=== PATIENT | female | born 1975 | race Caucasian/White ===

== ENCOUNTER → 2023-09-12 15:02 | Outpatient (REF) | payer OTHER, SELFPAY | LOC: WDC 15:02 | PROVIDERS: ATTENDING PHYSICIAN Nurse Practitioner Adult Health | DX: R92.2 Inconclusive mammogram (principal) | CPT/HCPCS: 76641 ==

== ENCOUNTER → 2024-05-18 08:07 | Day surgery (SDC) | payer OTHER, SELFPAY | LOC: GI 08:07 | PROVIDERS: ATTENDING PHYSICIAN Internal Medicine Gastroenterology; FAMILY PHYSICIAN Family Medicine | DX: Z12.11 Encounter for screening for malignant neoplasm of colon (principal); D12.3 Benign neoplasm of transverse colon; K62.1 Rectal polyp | CPT/HCPCS: 45385; 88305 ==

== ENCOUNTER → 2024-08-08 16:38 | Outpatient (REF) | payer OTHER, SELFPAY | LOC: WDC 16:38 | PROVIDERS: ATTENDING PHYSICIAN Nurse Practitioner Adult Health; FAMILY PHYSICIAN Family Medicine | DX: Z12.31 Encounter for screening mammogram for malignant neoplasm of breast (principal) | CPT/HCPCS: 77063; 77067 ==

== ENCOUNTER 2025-06-19 01:40 | Emergency (ER) | payer OTHER, SELFPAY ==
[2025-06-19 01:42] VITALS: BP 120/80
[2025-06-19 02:03] VITALS: BMI 22.3
--- NOTE | 2025-06-19 02:07 | ED.GENMED ---
History of Present Illness
General
Chief Complaint: Musculo-Skeletal Complaint
Source: patient
Exam Limitations: none
Time Seen by Provider: 06/19/25 01:48
Nursing documentation reviewed up to this point in time: agreed with
History of Present Illness
History of Present Illness:
49-year-old female with no past medical history on no daily medications presents to the ER today with concerns of sharp foot pain into pain starting at around 1 AM today. She reports that she Was waking up to use the bathroom when she suddenly
cannot bear weight on her right foot and noticed sharp foot pain approximate 1 AM this morning. She reports the pain was severe enough to impede walking and she reports that her foot is sensitive even to the feeling of the blanket on the skin. She
has never had a thing like this in the past. She has had chemicals in the past. The pain starts in the inside of foot and radiates to the great toe, worse with movement. Patient denies any recent trauma. No recent falls. She denies any pain in
the ankle. She denies any calf swelling. She has not had any fevers or chills or rashes. No redness. She reported that she went to the gym yesterday but did not engage in any unusual activities for her. She has seen [facility] orthopedist in
the past but currently does not follow with any orthopedist.
Past History
Past History
ED Past Medical History: Psychiatric
Social History
Tobacco: Non-smoker
Review of Systems
Review of Systems
All Other Systems: ROS reviewed and negative except as documented in HPI and ROS
Phy Exam
Physical Exam
Physical Exam:
General: Patient is well appearing and in no acute distress; non-toxic
Skin: Warm and dry, no rashes or lesions
Head: Normocephalic, atraumatic
Eyes: Sclera non-icteric. EOMs intact.
Cardiac: Regular rate
Peripheral Vascular: No lower extremity edema. 2+ DP pulses bilaterally.
Pulm: Normal respiratory effort
Musculoskeletal: Tenderness to palpation noted to the medial aspect of the dorsum of the foot with tenderness about the great toe. No tenderness about the ankle, no pain with varus and valgus stress. Full range of motion of the right lower
extremity.
Neuro: CN II-XII intact, no focal neurologic deficits. Sensation intact.
Psychiatric: Appropriate mood and affect.
Course
Orders/Labs/Results
Orders:
Orders
06/19/25 02:01
CR Foot - Right Min 3 Views Urgent
Comment:
Reason For Exam: right foot pain, great toe pain
06/19/25 02:49
boot [Ortho Boot Right- Treatment] ONCE
Short or tall?: Short
06/19/25 03:08
Ibuprofen [Motrin] 600 mg PO NOW STA
Vital Signs
Initial and Last Documented VS:
Initial Vital Signs
Temp Pulse BP Pulse Ox
98.1 F 73 120/80 99
06/19/25 01:42 06/19/25 01:42 06/19/25 01:42 06/19/25 01:42
Last Documented Vital Signs
Temp Pulse BP Pulse Ox
98.1 F 73 120/80 99
06/19/25 01:42 06/19/25 01:42 06/19/25 01:42 06/19/25 02:07
MDM/Problems Addressed
Differential Diagnosis Includes:
Differentials include gout, tendinitis, acute foot sprain, rheumatoid arthritis, osteoarthritis, occult fracture, nerve impingement, plantar fasciitis
MDM/Problems Addressed:
49-year-old female with no past medical history on no daily medications presents to the ER today with concerns of sharp foot pain into pain starting at around 1 AM today. No associated trauma. No associated rashes. No associated swelling.
Difficulty upon weightbearing. On physical exam, she has tenderness along the medial aspect of the dorsum of the foot extending into the great toe. Full range of motion. Neurovascular intact. Very sensitive to touch including sensation of
blanket on the foot. Suspect gout versus tendinitis. Will start patient on steroids treatment with walking boot. Case reviewed ED attending. Patient stable for discharge. Patient will call Dr. Grimm's office schedule follow-up appointment.
Strict return precautions discussed
Chronic conditions affecting care:
n/a
does smoke 2 cigarettes a day
*Pulse Oximetry
SaO2: 99
Oxygen Mode of Delivery: Room air
Patient hypoxic: no
*Critical Care Note
Total Time (30-74mins, 75-104mins- exclusive of procedures): Not Applicable
Data Reviewed
Review of Other/Old Records Reveals: Records (reviewed ER physician documentation from 12/24/14) and Discharge Summary (no discharge summary in [facility] to review )
Source: patient and records
Prescriptions/Medications Considered But Not Given:
n/a
Patient Management
Escalation/DeEscalation of care consider admission/obs:
admit not indicated
ED Attending Note
-
Portions of this chart may have been created with voice recognition software.� Occasional wrong word or��sound alike� substitutions may have occurred due to the inherent limitations of voice recognition software.
Discharge Plan
Departure
Patient Disposition: Home (Routine Discharge)
Date of Disposition: 06/19/25
Time of Disposition: 03:04
Patient with high blood pressure during this ER visit?: No
Condition: Good
Discharge Problem:
Acute foot pain
Instructions: Foot sprain, BLOOD PRESSURE
Prescriptions:
New
prednisone 20 mg tablet
40 mg PO DAILY 5 Days Qty: 10 0RF
Referrals:
Nicolás Grimm DPM [Active, Podiatry] - Call in 1-3 days for appt
Activity Restrictions/Additional Instructions:
Please continue to monitor your symptoms. I recommend keeping her foot elevated at home and you can try ice and heat as needed for pain. Placed routine prednisone. Please take 40 mg once daily for 5 days. I would use the boot to support her
ambulation for the next few days.
Please call the attached number to schedule appointment with Dr. Grimm's office.
PLEASE RETURN SHOULD YOU DEVELOP CHEST PAIN, SHORTNESS OF BREATH, CALF OR LEG SWELLING AND REDNESS, VESICULAR LESIONS, FEVER, OR ANY OTHER SIGNS OR SYMPTOMS WORRISOME TO YOU.
Interventions
Interventions:
*Risk Screen - Suicide Last Done: 06/19/25 01:44
*General Assessment Last Done: 06/19/25 01:44
*Neglect/Abuse Screening Last Done: 06/19/25 01:44
*ED COVID-19 Vaccine History Last Done: 06/19/25 01:44
*ED Influenza Vaccine History Last Done: 06/19/25 01:44
[facility] Fall Risk Assessment Tool Last Done: 06/19/25 02:04
*Nursing Disposition Last Done: 06/19/25 03:15
ED-Musculoskeletal Assessment Last Done: 06/19/25 02:09
Discharge Date and Time
Discharge Date/Time: 06/19/25 03:15
Print Language: IRISH
[2025-06-19] MEDS: MOTRIN 600 MG PO (03:14)
== END 2025-06-19 03:15 | disposition home or self-care (01) ==
LOC: EMR 01:40
PROVIDERS: EMERGENCY PHYSICIAN Student in an Organized Health Care Education/Training Program; FAMILY PHYSICIAN Family Medicine
DX: M79.671 Pain in right foot (principal); F17.210 Nicotine dependence, cigarettes, uncomplicated
CPT/HCPCS: 99283; 73630